=== PATIENT | female | born 1970 | race African-American/Black ===

== ENCOUNTER 2024-05-29 16:20 | Emergency (ER) | payer MEDICARE ==
[~2024-05-29] VITALS: Ht 170.2 cm; Wt 90.0 kg
[2024-05-29 16:22] VITALS: O2SAT 99
[2024-05-29] MEDS: SODIUM CHLORIDE 0.9% 1,000 ML IV ONE (17:36)
[2024-05-29 18:24] LABS: BASOPHILS % 0.5 % (0.0-2.0); EOSINOPHILS % 1.1 % (0.0-5.0); HEMATOCRIT. 41.3 % (36.0-48.0); HEMOGLOBIN. 13.4 g/dL (12.0-16.0); MEAN CORPUSCULAR HGB CONC 32.5 g/dL (31.0-37.0); MEAN CORPUSCULAR VOLUME 95.2 fL (81.0-99.0); MEAN PLATELET VOLUME 9.8 fl (7.4-10.4); MONOCYTES % 5.6 % (2.0-8.0); NEUTROPHILS % 72.8 % (40.0-76.0); PLATELET 214 x1000/uL (130-400); RED BLOOD CELL COUNT 4.33 mill/uL (4.2-5.4); RED CELL DISTRIBUTION WIDTH 13.6 % (11.6-14.6); WHITE BLOOD COUNT 8.2 x1000/uL (4.5-11.0)
[2024-05-29 18:32] LABS: CHLORIDE 107 mEq/L (98-107); POTASSIUM 4.9 mEq/L (3.5-5.1); SODIUM 140 mEq/L (136-145)
[2024-05-29 18:33] LABS: CALCIUM 9.6 mg/dL (8.7-10.4); CARBON DIOXIDE 21 mEq/L (21-32)
[2024-05-29 18:38] LABS: CREATININE 1.8 mg/dL (0.6-1.0); GLUCOSE 278 mg/dL (70-105); UREA NITROGEN BLOOD 26 mg/dL (9-23)
[2024-05-29 18:40] LABS: TROPONIN I HIGH SENSITIVITY 15 ng/L (3.0-34)
[2024-05-29 18:43] LABS: ETHANOL BLOOD < 10 mg/dL (<10)
[2024-05-29 18:48] LABS: BETA HYDROXYBUTYRATE 0.5 mMol/L (0.0-0.3)
[2024-05-29 19:00] LABS: INR 0.9; PARTIAL THROMBOPLASTIN TIME 22.4 sec (23.4-31.0); PROTHROMBIN TIME 10.2 sec (9.6-11.0)
[2024-05-29] MEDS ORDERED: ACETAMINOPHEN 325MG TABLET PO PRN (20:30)
[2024-05-29] MEDS ORDERED: HYDRALAZINE 20MG/ML VIAL IV PRN (20:30)
[2024-05-29] MEDS ORDERED: SODIUM CHLORIDE 0.45% 1,000 ML IV SCH (20:30)
[2024-05-29] MEDS ORDERED: IPRATROPIUM/ALBUTEROL 0.5-3(2.5)MG/3ML NEB HHN PRN (20:30)
[2024-05-29] MEDS ORDERED: ONDANSETRON HCL 4MG/2ML INJ IV PRN (20:30)
[2024-05-29] MEDS ORDERED: DEXTROSE 50% WATER 50ML SYRINGE IV PRN (20:30)
[2024-05-29] MEDS ORDERED: INSULIN LISPRO 100 UNITS/ML SUBCUT SCH (21:00)
[2024-05-29] MEDS ORDERED: BLOOD SUGAR DIAGNOSTIC STRIP TEST SCH (21:00)
[2024-05-29 21:15] VITALS: BP 134/74; PULSE 98; RESP 15; TEMP 36.3; O2SAT 97
[2024-05-29] MEDS ORDERED: CARVEDILOL 3.125 MG TABLET PO SCH (21:15)
[2024-05-30] MEDS ORDERED: LOSARTAN 25 MG TABLET PO SCH (09:00)
[2024-05-30] MEDS ORDERED: ASPIRIN 81MG TABLET PO SCH (09:00)
[2024-05-30] MEDS ORDERED: ATORVASTATIN CALCIUM 40MG TABLET PO SCH (21:00)
[2024-05-30] MEDS ORDERED: FAMOTIDINE 20MG TABLET PO SCH (21:00)
== END 2024-05-29 21:17 | disposition left against medical advice (07) ==
LOC: ER 16:33 → EDBEDREQTM 19:22 → EDBEDREQ 19:22 → ER 21:17 → CANBEDREQ 21:21
DX: N17.9 Acute kidney failure, unspecified (principal); E86.0 Dehydration; I10 Essential (primary) hypertension; E11.9 Type 2 diabetes mellitus without complications; Z90.49 Acquired absence of other specified parts of digestive tract; Z98.890 Other specified postprocedural states
CPT/HCPCS: 80048; 82010; 80320; 83036; 83690; 85025; 85610; 85730; 84484; 36415; 71045; 70450; 72125; 93005; 96360; 99285; J7030; G0480